=== PATIENT | male | born 1965 | race Two or more races ===

== ENCOUNTER 2019-03-09 13:06 | Emergency (ER) | payer SELFPAY ==
[~2019-03-09] VITALS: Ht 172.7 cm; Wt 81.6 kg
--- NOTE | 2019-03-09 13:20 | NUR ---
[id number] [place], ALTERED W BEER CANS. PT ADMITS TO DRINKING. BG [employer], HYP[employer]. PT IS VERBAL BUT DIFFICULT TO UNDERSTAND. UNABLE TO OBTAIN ANY INFORMATION. DOES NOT STAY AWAKE LONG. NO ACUTE DISTRESS NOTED. ON MONITOR, READY FOR EVAL.
--- NOTE | 2019-03-09 13:21 | NUR ---
PT IS ON 2L O2 VIA NC
[2019-03-09] MEDS ORDERED: IV NS 0.9% 1,000 ML BAG IV ONE (13:30)
[2019-03-09 13:33] LABS: BASOPHILS # (AUTO) 0.1 /CMM (0.0-0.2); BASOPHILS % (AUTO) 1.2 % (0.0-2.0); EOSINOPHILS % (AUTO) 2.3 % (0.0-6.0); HEMATOCRIT 34 % (39-51); HEMOGLOBIN 11.8 g/dL (13.5-17.5); LYMPHOCYTES % (AUTO) 34.6 % (20.0-44.0); MEAN CORPUSCULAR HGB CONC 35 g/dl (31.0-36.0); MEAN CORPUSCULAR VOLUME 91 fL (80-96); MONOCYTES # (AUTO) 0.8 /CMM (0.1-1.30); MONOCYTES % (AUTO) 13.9 % (2.0-12.0); NEUTROPHILS # (AUTO) 2.7 /CMM (1.8-8.9); PLATELET COUNT (AUTO) 269 /CMM (150-450); RED BLOOD CELL COUNT(AUTO) 3.73 MIL/uL (4.5-6.0); WHITE BLOOD COUNT (AUTO) 5.6 K/uL (4.3-11.0)
[2019-03-09 13:48] LABS: CALCIUM, SERUM 8.4 mg/dL (8.5-10.1); CREATININE 1.5 mg/dL (0.6-1.3); POTASSIUM 3.8 mmol/L (3.5-5.1)
--- NOTE | 2019-03-09 13:50 | NUR ---
PT TAKEN TO CT VIA [facility]
[2019-03-09 13:53] LABS: BILIRUBIN,DIRECT 0.1 mg/dL (0.0-0.2); BILIRUBIN,TOTAL 0.1 mg/dL (0.2-1.0); SALICYLATE 0.9 mg/dL (2.8-20.0)
--- NOTE | 2019-03-09 15:38 | NUR ---
PT ASLEEP IN BED, SNORING VERY LOUDLY. VSS. WILL CONT TO MONITOR.
--- NOTE | 2019-03-09 16:20 | NUR ---
PT AMBULATING TO BATHROOM. URINE SAMPLE COLLECTED AND SENT TO STAT LAB
[2019-03-09 16:33] LABS: APPEARANCE,URINE Clear (CLEAR); BILIRUBIN,URINE Negative (NEGATIVE); BLOOD, URINE Trace-lysed Ery/uL (NEGATIVE); COLOR,URINE Yellow (YELLOW); KETONES,URINE Negative (NEGATIVE); LEUKOCYTE ESTERASE ,URINE Negative (NEGATIVE); NITRITE, URINE Negative (NEGATIVE); PROTEIN,URINE Negative (NEGATIVE); UGLUCOSE Negative (NEGATIVE); UROBILINOGEN,URINE 0.2 EU/dL (0.2)
[2019-03-09 16:53] LABS: BACTERIA,URINE Rare /HPF (None Seen); MUCUS,URINE Few /LPF (None Seen); RBC,URINE 2-3/HPF /HPF (0-2); SQUAMOUS EPITHELIAL CELL,UR Few /HPF (None Seen); WBC,URINE 0-2 /HPF (0-3)
--- NOTE | 2019-03-09 17:16 | NUR ---
Patient is resting comfortably in bed with eyes closed. Easily aroused. VSS
--- NOTE | 2019-03-09 18:50 | NUR ---
IV removed. Catheter intact and site benign. Pressure and 4x4 applied to site. No bleeding noted.Patient discharged to home in stable condition. Written and verbal after care instructions given. Patient verbalizes understanding of instruction.
[2019-03-09 19:16] VITALS: BP 117/76
== END 2019-03-09 18:50 | disposition home or self-care (01) ==
LOC: EDBD 13:06 → ER 13:06
DX: F10.129 Alcohol abuse with intoxication, unspecified (principal); R41.82 Altered mental status, unspecified; Y90.9 Presence of alcohol in blood, level not specified
CPT/HCPCS: 36415; 70450; 80048; 80076; 80305; 80307; 80329; 81001; 85025; 96360; 99284; G0480; J7030; 81000-TC